=== PATIENT | male | born 1945 | race Hispanic/Latino ===

== ENCOUNTER 2018-08-10 16:20 | Inpatient (IN) | payer MEDICARE ==
[~2018-08-10] VITALS: Ht 167.6 cm; Wt 105.7 kg
[2018-08-10] MEDS ORDERED: DEXTROSE 50% SYRINGE 50 ML IV ONE (16:45)
--- NOTE | 2018-08-10 17:36 | Diagnostic Imaging Report ---
Examination: Single AP view of the chest. COMPARISON: Sweating, hypertension INDICATION: None DISCUSSION: Portable AP chest radiograph with motion artifacts and rotation. Lines/tubes: None Lungs: Low lung volumes and vascular crowding. There is no evidence of pneumonia or pulmonary edema. Pleura: There is no pleural effusion or pneumothorax. Heart and mediastinum: Cardiomediastinal silhouette is unremarkable. Pulmonary vasculature is normal. Bones and soft tissues: No acute bony abnormalities. Degenerative changes in the thoracic spine. IMPRESSION: Suboptimal exam as described. Low lung volumes with vascular crowding. Signed by: Jhony Orellana MD on 08/10/2018 5:33 PM
[2018-08-10] MEDS: DEXTROSE 10% 1,000 ML IV SCH (17:40)
[2018-08-10] MEDS ORDERED: ONDANSETRON HCL INJ 2MG/ML 2ML 2 MG/ML VIAL IV PRN (19:00)
[2018-08-10] MEDS ORDERED: DEXTROSE 50% SYRINGE 50 ML IV PRN (19:00)
[2018-08-10 19:09] LABS: BASOPHILS % 0.1 % (0.0-1.0); EOSINOPHILS % 0.1 % (0.0-6.0); HEMATOCRIT 35.8 % (38.2-49.6); HEMOGLOBIN 12.4 g/dL (14.0-18.0); LYMPHOCYTES % 9.9 % (18.0-39.1); MEAN CORPUSCULAR HEMOGLOBIN 30.3 pg (28-32); MEAN CORPUSCULAR HGB CONC 34.6 g/dL (31-35); MEAN CORPUSCULAR VOLUME 87.5 fL (81-99); MONOCYTES # (AUTO) 0.3 (0.2-0.8); MONOCYTES % 3.4 % (4.4-11.3); NEUTROPHILS # (AUTO) 8.5 (2.1-6.9); NEUTROPHILS % 86.1 % (38.7-80.0); PLATELET COUNT 241 x10e3/uL (140-360); RED BLOOD COUNT 4.09 x10e6/uL (4.3-5.7); RED CELL DISTRIBUTION WIDTH 13.2 % (11.7-14.4)
[2018-08-10 19:21] LABS: INR 0.83; PARTIAL THROMBOPLASTIN TIME 27.8 seconds (23.8-35.5); PROTHROMBIN TIME 11.9 seconds (11.9-14.5)
[2018-08-10 19:31] LABS: ALBUMIN 3.4 g/dL (3.5-5.0); ALBUMIN/GLOBULIN RATIO 0.9 (0.8-2.0); ANION GAP 17.1 mmol/L (8-16); CALCIUM 9.4 mg/dL (8.4-10.2); CREATININE, SERUM 3.11 mg/dL (0.72-1.25); MAGNESIUM 2.2 MG/DL (1.3-2.1)
[2018-08-10 19:32] LABS: POTASSIUM 5.1 mmol/L (3.5-5.1)
[2018-08-10 19:37] LABS: CREATINE KINASE MB 1.4 ng/mL (0-5.0)
[2018-08-10] MEDS: OCTREOTIDE ACETATE 0.05 MG/ML AMP INJ SCH (19:50)
[2018-08-10] MEDS ORDERED: HYDRALAZINE HCL 20 MG/ML VIAL IV NR (20:00)
[2018-08-10] MEDS ORDERED: LOVASTATIN40 MG PO (20:08)
[2018-08-10] MEDS ORDERED: METFORMIN HCL850 MG PO (20:08)
[2018-08-10] MEDS ORDERED: ASPIRIN EC81 MG PO (20:08)
[2018-08-10] MEDS ORDERED: ACTOS15 MG PO (20:08)
[2018-08-10] MEDS ORDERED: GLIMEPIRIDE2 MG PO (20:08)
[2018-08-10] MEDS ORDERED: CLONIDINE HCL0.2 MG PO (20:08)
[2018-08-10] MEDS ORDERED: LOSARTAN POTAS100 MG PO (20:08)
--- OUTSIDE RECORDS SUMMARY | 2018-08-10 21:01 | XMS REPORT ---
Author Author [facility] Address Unknown Phone Unavailable Care Team Providers Care Healthcare Management Name Role Phone Patsy PANTOJA Unavailable Unavailable Problems This patient has no known problems. Allergies, Adverse Reactions, Alerts This patient has no known allergies or adverse reactions. Medications This patient has no known medications. Results Test Description Test Time Test Comments Text Results Atomic Results Result Comments CHEST SINGLE (PORTABLE) 2018-08-10 17:30:00 [place] [id number] Patient Name: LISBET CLEMONS MR #: [id number] : 1945 Age/Sex: 72/M Req #: [id number] Adm Physician: Ordered by: JENNY PANTOJA MD Report #: [id number] Location: ER Room/Bed: Procedure: [id number] DX/CHEST SINGLE (PORTABLE) Exam Date: 08/10/18 Exam Time: 1715 REPORT STATUS: Signed Examination: Single AP view of the chest. COMP ARISON: Sweating, hypertension INDICATION: None DISCUSSION: Portable AP chest radiograph with motion artifacts and rotation. Lines/tubes: None Lungs: Low lung volumes and vascular crowding. There is no evidence of pneumonia or pulmonary edema. Pleura: There is no pleural effusion or pneumothorax. Heart and mediastinum: Cardiomediastinal silhouette is unremarkable. Pulmonary vasculature is normal. Bones and soft tissues: No acute bony abnormalities. Degenerative changes in the thoracic spine. IMPRESSION: Suboptimal exam as described. Low lung volumes with vascular crowding. Signed by: Rajat Orellana MD on 08/10/2018 5:33 PM Dictated By: RAJAT ORELLANA MD 173 Transcribed By: GAURAV on 08/10/181732 COPY TO: JENNY PANTOJA MD
[2018-08-11 00:50] LABS: BILIRUBIN,URINE NEGATIVE (NEGATIVE); CLARITY,URINE CLEAR (CLEAR); COLOR,URINE YELLOW (YELLOW); KETONES,URINE NEGATIVE (NEGATIVE); LEUKOCYTE ESTERASE ,URINE NEGATIVE (NEGATIVE); NITRITE,URINE NEGATIVE (NEGATIVE); PROTEIN,URINE DIPSTICK 2+ (NEGATIVE); URINE UROBILINOGEN 0.2 mg/dL (0.2 - 1)
[2018-08-11 00:55] LABS: BACTERIA,URINE MODERATE /HPF; EPITHELIAL CELLS,URINE RARE /LPF; HYALINE CASTS 0-1 (0-1); RBC,URINE 0-5 /HPF (0-5); WBC,URINE (MAN) 0-5 /HPF (0-5)
[2018-08-11] MEDS: OCTREOTIDE ACETATE 0.05 MG/ML AMP INJ SCH ×4 (02:59→21:00)
[2018-08-11 03:28] LABS: CREATINE KINASE MB 1.2 ng/mL (0-5.0)
[2018-08-11] MEDS: DEXTROSE 10% 1,000 ML IV SCH (06:15)
[2018-08-11 06:28] LABS: BASOPHILS % 0.3 % (0.0-1.0); EOSINOPHILS # (AUTO) 0.1 (0.0-0.4); EOSINOPHILS % 0.8 % (0.0-6.0); HEMATOCRIT 33.5 % (38.2-49.6); HEMOGLOBIN 11.9 g/dL (14.0-18.0); LYMPHOCYTES # (AUTO) 1.6 (1.0-3.2); MEAN CORPUSCULAR HEMOGLOBIN 30.8 pg (28-32); MEAN CORPUSCULAR HGB CONC 35.5 g/dL (31-35); MEAN CORPUSCULAR VOLUME 86.8 fL (81-99); MONOCYTES # (AUTO) 0.6 (0.2-0.8); MONOCYTES % 9.6 % (4.4-11.3); NEUTROPHILS % 64.1 % (38.7-80.0); PLATELET COUNT 229 x10e3/uL (140-360); RED BLOOD COUNT 3.86 x10e6/uL (4.3-5.7); RED CELL DISTRIBUTION WIDTH 13.3 % (11.7-14.4)
[2018-08-11 07:06] LABS: CREATINE KINASE MB 1.1 ng/mL (0-5.0)
[2018-08-11 07:20] LABS: ANION GAP 11.4 mmol/L (8-16); CALCIUM 8.4 mg/dL (8.4-10.2); CREATININE, SERUM 2.89 mg/dL (0.72-1.25); POTASSIUM 4.4 mmol/L (3.5-5.1)
[2018-08-11] MEDS ORDERED: SODIUM CHLORIDE 0.9% 1000ML 1,000 ML IV SCH (11:45)
[2018-08-11] MEDS ORDERED: DEXTROSE 50% SYRINGE 50 ML IV PRN (11:45)
[2018-08-11] MEDS ORDERED: PIOGLITAZONE HCL 45 MG TAB PO SCH (12:00)
[2018-08-11] MEDS: CEFTRIAXONE SOD 1 GM/NS 50 ML 50 ML IV SCH (12:05)
[2018-08-11] MEDS: LOSARTAN POTASSIUM 100 MG TAB PO SCH (12:15)
[2018-08-11] MEDS: ASPIRIN 81 MG ENTERIC COATED PO SCH (12:15)
[2018-08-11 12:17] LABS: CHOL/HDL RATIO 2.6 (3.9-4.7)
[2018-08-11 13:46] VITALS: BP 177/80
[2018-08-11 14:05] VITALS: BP 177/80
[2018-08-11] MEDS: INSULIN REGULAR, HUMAN 100 UNIT/1 ML 3ML VIAL SQ SCH ×2 (16:30→21:00)
--- NOTE | 2018-08-11 16:41 | Diagnostic Imaging Report ---
EXAM: Renal Ultrasound INDICATION: Abnormal labs. COMPARISON: None TECHNIQUE: Transverse and longitudinal images of the kidneys and bladder were obtained. FINDINGS: Right Kidney: Length: 11.9 cm, the renal cortex measures 1.6 cm Appearance: Normal echogenicity. Collecting system: No hydronephrosis Stones: None Cyst/Mass: No evidence of solid mass. There is a simple appearing anechoic cyst within the right mid pole kidney, measuring up to 1.6 x 1.2 x 1.7 cm. Left Kidney: Length: 11.0 cm, the renal cortex measures 2.0 cm Appearance: Normal echogenicity. Collecting system: No hydronephrosis Stones: None Cyst/Mass: None Bladder: Unremarkable in appearance. Bilateral ureteral jets are seen. The prevoid volume is 413 cc. No postvoid volume. Prostate: Not visualized. IMPRESSION: No evidence of hydronephrosis or stone. Simple appearing right mid pole renal cyst, measuring up to 1.7 cm. Signed by: Dr. Antionette Collins MD on 08/11/2018 4:38 PM
[2018-08-11 17:00] VITALS: BP 190/76
[2018-08-11] MEDS: CLONIDINE HCL 0.2 MG TAB PO SCH (17:31)
[2018-08-11] MEDS: HYDRALAZINE HCL 20 MG/ML VIAL IV PRN (17:33)
[2018-08-11 18:46] LABS: ANION GAP 12.1 mmol/L (8-16); CALCIUM 8.6 mg/dL (8.4-10.2); CREATININE, SERUM 2.91 mg/dL (0.72-1.25)
[2018-08-11 18:48] LABS: POTASSIUM 5.1 mmol/L (3.5-5.1)
[2018-08-11 20:00] VITALS: BP 178/81
[2018-08-11] MEDS: SIMVASTATIN 40 MG TAB PO SCH (21:03)
[2018-08-11] MEDS: HYDRALAZINE HCL 25 MG TAB PO SCH (22:00)
[2018-08-11] MEDS: SODIUM CHLORIDE 0.9% 1000ML 1,000 ML IV SCH (22:09)
[2018-08-12] VITALS (8 sets, daily range): BP systolic 131–195; BP diastolic 62–82
[2018-08-12] MEDS: SODIUM CHLORIDE 0.9% 1000ML 1,000 ML IV SCH ×2 (03:10→09:45)
[2018-08-12] MEDS: HYDRALAZINE HCL 25 MG TAB PO SCH ×3 (05:50→22:17)
[2018-08-12 06:51] LABS: HEMATOCRIT 33.8 % (38.2-49.6); HEMOGLOBIN 11.1 g/dL (14.0-18.0); MEAN CORPUSCULAR HEMOGLOBIN 29.5 pg (28-32); MEAN CORPUSCULAR HGB CONC 32.8 g/dL (31-35); MEAN CORPUSCULAR VOLUME 89.9 fL (81-99); PLATELET COUNT 211 x10e3/uL (140-360); RED BLOOD COUNT 3.76 x10e6/uL (4.3-5.7); RED CELL DISTRIBUTION WIDTH 13.2 % (11.7-14.4)
[2018-08-12 07:42] LABS: ANION GAP 12.9 mmol/L (8-16); CALCIUM 8.1 mg/dL (8.4-10.2); CREATININE, SERUM 2.66 mg/dL (0.72-1.25); POTASSIUM 4.9 mmol/L (3.5-5.1)
[2018-08-12] MEDS ORDERED: SODIUM CHLORIDE 0.9% 1000ML 1,000 ML IV ONE (08:00)
[2018-08-12] MEDS ORDERED: SIMVASTATIN 20 MG TAB PO SCH (09:00)
[2018-08-12] MEDS ORDERED: PIOGLITAZONE HCL 15 MG TAB PO SCH (09:00)
[2018-08-12] MEDS: INSULIN REGULAR, HUMAN 100 UNIT/1 ML 3ML VIAL SQ SCH ×4 (09:43→21:03)
[2018-08-12] MEDS: LOSARTAN POTASSIUM 100 MG TAB PO SCH (09:44)
[2018-08-12] MEDS: CLONIDINE HCL 0.2 MG TAB PO SCH ×2 (09:44→17:09)
[2018-08-12] MEDS: ASPIRIN 81 MG ENTERIC COATED PO SCH (09:44)
[2018-08-12] MEDS: CEFTRIAXONE SOD 1 GM/NS 50 ML 50 ML IV SCH (09:45)
[2018-08-12] MEDS: HYDRALAZINE HCL 20 MG/ML VIAL IV PRN ×2 (12:03→21:00)
[2018-08-12 14:20] LABS: EOSINOPHILS % (MANUAL) 1 % (0-7); LYMPHOCYTES % (MANUAL) 32 % (19-48); MONOCYTES % (MANUAL) 5 % (3.4-9.0); MYELOCYTES % (MANUAL) 1 % (0-0); NEUTROPHILS % (MANUAL) 56 % (40-74); PLATELET ESTIMATE ADEQUATE; PLATELET MORPHOLOGY COMMENT NORMAL; RBC MORPHOLOGY COMMENT NORMAL
[2018-08-12] MEDS ORDERED: ONDANSETRON HCL 4 MG ORAL DISINTEGRATING TAB PO PRN (20:15)
[2018-08-12] MEDS: SIMVASTATIN 40 MG TAB PO SCH (21:03)
[2018-08-12] MEDS ORDERED: OCTREOTIDE ACETATE 0.05 MG/ML AMP INJ SCH (21:30)
[2018-08-13] VITALS (9 sets, daily range): BP systolic 152–208; BP diastolic 64–85
[2018-08-13] MEDS: HYDRALAZINE HCL 20 MG/ML VIAL IV PRN ×2 (03:06→20:43)
[2018-08-13] MEDS: SODIUM CHLORIDE 0.9% 1000ML 1,000 ML IV SCH (03:10)
[2018-08-13] MEDS: HYDRALAZINE HCL 25 MG TAB PO SCH ×3 (06:35→22:18)
[2018-08-13 07:36] LABS: ANION GAP 13.6 mmol/L (8-16); CALCIUM 8.1 mg/dL (8.4-10.2); CREATININE, SERUM 2.38 mg/dL (0.72-1.25); POTASSIUM 4.6 mmol/L (3.5-5.1)
[2018-08-13] MEDS: ASPIRIN 81 MG ENTERIC COATED PO SCH (08:01)
[2018-08-13] MEDS: CEFTRIAXONE SOD 1 GM/NS 50 ML 50 ML IV SCH (11:17)
[2018-08-13] MEDS: CLONIDINE HCL 0.2 MG TAB PO SCH ×2 (12:21→22:18)
[2018-08-13] MEDS: SIMVASTATIN 40 MG TAB PO SCH (20:43)
[2018-08-13] MEDS ORDERED: INSULIN LISPRO 100 UNIT/1 ML 3ML VIAL SQ ONE ×2 (21:00→22:30)
[2018-08-14] VITALS (8 sets, daily range): BP systolic 128–170; BP diastolic 62–81
[2018-08-14] MEDS: HYDRALAZINE HCL 25 MG TAB PO SCH (06:12)
[2018-08-14] MEDS: SODIUM CHLORIDE 0.9% 1000ML 1,000 ML IV SCH ×2 (06:12→17:52)
[2018-08-14] MEDS: CLONIDINE HCL 0.2 MG TAB PO SCH ×3 (06:12→22:14)
[2018-08-14] MEDS ORDERED: HYDRALAZINE HCL 25 MG TAB PO NR (07:30)
[2018-08-14 07:57] LABS: ANION GAP 10.1 mmol/L (8-16); CREATININE, SERUM 2.13 mg/dL (0.72-1.25); POTASSIUM 4.1 mmol/L (3.5-5.1)
[2018-08-14] MEDS: ASPIRIN 81 MG ENTERIC COATED PO SCH (08:18)
[2018-08-14] MEDS ORDERED: DEXTROSE 50% SYRINGE 50 ML IV PRN (11:30)
[2018-08-14] MEDS: INSULIN LISPRO 100 UNIT/1 ML 3ML VIAL SQ SCH ×3 (11:30→20:33)
[2018-08-14] MEDS: CEFTRIAXONE SOD 1 GM/NS 50 ML 50 ML IV SCH (11:31)
[2018-08-14] MEDS ORDERED: LANTUS 3ML100 UNITS/ SQ (11:40)
[2018-08-14] MEDS ORDERED: HYDRALAZINE HCL 25 MG TAB PO SCH (14:00)
[2018-08-14] MEDS: HYDRALAZINE HCL 100 MG TABLET PO SCH ×2 (14:45→22:14)
[2018-08-14] MEDS: HYDRALAZINE HCL 20 MG/ML VIAL IV PRN (16:52)
[2018-08-14] MEDS: SIMVASTATIN 40 MG TAB PO SCH (20:33)
[2018-08-15] VITALS (8 sets, daily range): BP systolic 125–190; BP diastolic 60–83
[2018-08-15] MEDS: SODIUM CHLORIDE 0.9% 1000ML 1,000 ML IV SCH ×3 (01:59→12:04)
[2018-08-15] MEDS: HYDRALAZINE HCL 100 MG TABLET PO SCH ×3 (05:24→22:00)
[2018-08-15] MEDS: CLONIDINE HCL 0.2 MG TAB PO SCH ×3 (05:24→22:00)
[2018-08-15] MEDS: INSULIN LISPRO 100 UNIT/1 ML 3ML VIAL SQ SCH ×4 (07:30→21:00)
[2018-08-15] MEDS: ASPIRIN 81 MG ENTERIC COATED PO SCH (08:26)
[2018-08-15] MEDS: CEFTRIAXONE SOD 1 GM/NS 50 ML 50 ML IV SCH (12:03)
[2018-08-15] MEDS: HYDRALAZINE HCL 20 MG/ML VIAL IV PRN (12:03)
[2018-08-15] MEDS: SIMVASTATIN 40 MG TAB PO SCH (21:00)
[2018-08-16] VITALS (9 sets, daily range): BP systolic 153–184; BP diastolic 68–92
[2018-08-16] MEDS: SODIUM CHLORIDE 0.9% 1000ML 1,000 ML IV SCH ×4 (05:02→22:49)
[2018-08-16] MEDS: HYDRALAZINE HCL 100 MG TABLET PO SCH ×3 (05:02→22:28)
[2018-08-16] MEDS: CLONIDINE HCL 0.2 MG TAB PO SCH ×3 (05:02→22:28)
[2018-08-16 06:25] LABS: BASOPHILS % 0.4 % (0.0-1.0); EOSINOPHILS # (AUTO) 0.1 (0.0-0.4); EOSINOPHILS % 1.6 % (0.0-6.0); HEMOGLOBIN 9.3 g/dL (14.0-18.0); LYMPHOCYTES # (AUTO) 1.2 (1.0-3.2); LYMPHOCYTES % 24.7 % (18.0-39.1); MEAN CORPUSCULAR HEMOGLOBIN 30.4 pg (28-32); MEAN CORPUSCULAR HGB CONC 34.4 g/dL (31-35); MEAN CORPUSCULAR VOLUME 88.2 fL (81-99); MONOCYTES # (AUTO) 0.4 (0.2-0.8); MONOCYTES % 8.4 % (4.4-11.3); NEUTROPHILS # (AUTO) 3.2 (2.1-6.9); NEUTROPHILS % 64.7 % (38.7-80.0); PLATELET COUNT 175 x10e3/uL (140-360); RED BLOOD COUNT 3.06 x10e6/uL (4.3-5.7); RED CELL DISTRIBUTION WIDTH 12.9 % (11.7-14.4)
[2018-08-16 06:46] LABS: ANION GAP 9.2 mmol/L (8-16); CREATININE, SERUM 1.64 mg/dL (0.72-1.25); POTASSIUM 4.2 mmol/L (3.5-5.1)
[2018-08-16] MEDS: INSULIN LISPRO 100 UNIT/1 ML 3ML VIAL SQ SCH ×4 (07:30→21:03)
[2018-08-16] MEDS: ASPIRIN 81 MG ENTERIC COATED PO SCH (08:36)
[2018-08-16] MEDS: CEFTRIAXONE SOD 1 GM/NS 50 ML 50 ML IV SCH (11:20)
[2018-08-16] MEDS: HYDRALAZINE HCL 20 MG/ML VIAL IV PRN ×2 (12:15→18:52)
[2018-08-16] MEDS ORDERED: SODIUM BICARBO650 MG PO (15:05)
[2018-08-16] MEDS ORDERED: HYDRALAZINE HC100 MG PO (15:05)
[2018-08-16] MEDS: SIMVASTATIN 40 MG TAB PO SCH (20:46)
[2018-08-16] MEDS: ISOSORBIDE DINITRATE 20 MG TAB PO SCH (22:28)
[2018-08-17] VITALS: BP 144/66
[2018-08-17 04:00] VITALS: BP 145/64
[2018-08-17] MEDS: SODIUM CHLORIDE 0.9% 1000ML 1,000 ML IV SCH (06:29)
[2018-08-17] MEDS: CLONIDINE HCL 0.2 MG TAB PO SCH (06:30)
[2018-08-17] MEDS: HYDRALAZINE HCL 100 MG TABLET PO SCH (06:30)
[2018-08-17 06:37] LABS: BASOPHILS % 0.4 % (0.0-1.0); EOSINOPHILS # (AUTO) 0.1 (0.0-0.4); EOSINOPHILS % 1.2 % (0.0-6.0); HEMOGLOBIN 9.2 g/dL (14.0-18.0); LYMPHOCYTES # (AUTO) 1.5 (1.0-3.2); LYMPHOCYTES % 29.7 % (18.0-39.1); MEAN CORPUSCULAR HEMOGLOBIN 30.1 pg (28-32); MEAN CORPUSCULAR HGB CONC 34.1 g/dL (31-35); MEAN CORPUSCULAR VOLUME 88.2 fL (81-99); MONOCYTES # (AUTO) 0.4 (0.2-0.8); MONOCYTES % 8.2 % (4.4-11.3); NEUTROPHILS # (AUTO) 3.1 (2.1-6.9); NEUTROPHILS % 60.1 % (38.7-80.0); PLATELET COUNT 190 x10e3/uL (140-360); RED BLOOD COUNT 3.06 x10e6/uL (4.3-5.7); RED CELL DISTRIBUTION WIDTH 13.1 % (11.7-14.4)
[2018-08-17 06:47] LABS: ANION GAP 10.1 mmol/L (8-16); CREATININE, SERUM 1.54 mg/dL (0.72-1.25); POTASSIUM 4.1 mmol/L (3.5-5.1)
[2018-08-17 07:30] VITALS: BP 162/80
[2018-08-17 08:00] VITALS: BP 162/80
[2018-08-17] MEDS: ASPIRIN 81 MG ENTERIC COATED PO SCH (08:22)
[2018-08-17] MEDS: ISOSORBIDE DINITRATE 20 MG TAB PO SCH (08:23)
[2018-08-17] MEDS: INSULIN LISPRO 100 UNIT/1 ML 3ML VIAL SQ SCH (08:24)
== END 2018-08-17 11:08 | disposition home or self-care (01) | DRG 638 ==
LOC: ER 16:20 → ERHOLD 20:58 → MED/SURG3 08-11 12:20 → OBSVTOIN 08-12 15:20
PROVIDERS: ADMIT Internal Medicine; ATTEND Internal Medicine
DX: E11.649 Type 2 diabetes mellitus with hypoglycemia without coma (principal); Z68.41 Body mass index [BMI] 40.0-44.9, adult; N17.9 Acute kidney failure, unspecified; I12.9 Hypertensive chronic kidney disease with stage 1 through stage 4 chronic kidney disease, or unspecified chronic kidney disease; E11.22 Type 2 diabetes mellitus with diabetic chronic kidney disease; N18.3 Chronic kidney disease, stage 3 (moderate); Z79.4 Long term (current) use of insulin; E86.0 Dehydration; E66.01 Morbid (severe) obesity due to excess calories; Z79.84 Long term (current) use of oral hypoglycemic drugs; D64.9 Anemia, unspecified
CPT/HCPCS: 36415; 71045; 76770; 80048; 80053; 80061; 81001; 82550; 82553; 82948; 83036; 83605; 83735; 84484; 85007; 85025; 85027; 85610; 85730; 87040; 87086; 93005; 96360; 96361; 96372; 99284; G0378; J0360; J0696; J2354; J7030; J7799

== ENCOUNTER 2021-08-22 23:13 | Inpatient (IN) | payer MEDICARE ==
[~2021-08-22] VITALS: Ht 167.6 cm; Wt 105.7 kg
[~2021-08-22 23:13] MED LIST: ACTOS15 MG PO; ASPIRIN EC81 MG PO; CLONIDINE HCL0.2 MG PO; GLIMEPIRIDE2 MG PO; HYDRALAZINE HC100 MG PO; LANTUS 3ML100 UNITS/ SQ; LOSARTAN POTAS100 MG PO; LOVASTATIN40 MG PO; METFORMIN HCL850 MG PO; SODIUM BICARBO650 MG PO
[2021-08-22] MEDS ORDERED: INSULIN REGULAR, HUMAN 100 UNIT/1 ML IV STA (23:27)
[2021-08-22] MEDS ORDERED: SODIUM CHLORIDE 0.9% 1000ML 1,000 ML IV STA (23:27)
[2021-08-22 23:39] LABS: HEMATOCRIT 31.5 % (38.2-49.6); LYMPHOCYTES # (AUTO) 0.8 (1.0-3.2); LYMPHOCYTES % 11.5 % (18.0-39.1); MEAN CORPUSCULAR HEMOGLOBIN 30.5 pg (28-32); MEAN CORPUSCULAR HGB CONC 34.9 g/dL (31-35); MEAN CORPUSCULAR VOLUME 87.3 fL (81-99); MONOCYTES # (AUTO) 0.1 (0.2-0.8); NEUTROPHILS # (AUTO) 5.7 (2.1-6.9); NEUTROPHILS % 86.2 % (38.7-80.0); PLATELET COUNT 216 x10e3/uL (140-360); RED BLOOD COUNT 3.61 x10e6/uL (4.3-5.7); RED CELL DISTRIBUTION WIDTH 12.4 % (11.7-14.4)
[2021-08-22 23:57] LABS: ABG HCO3 21 mmol/L (22-26); ABG PCO2 37 mmHg (35-45); ABG PH 7.36 (7.35-7.45); ABG PO2 79 mmHg (80-105)
[2021-08-22 23:58] LABS: ABG TCO2 22
[2021-08-22 23:59] LABS: ALBUMIN 2.8 g/dL (3.5-5.0); ALBUMIN/GLOBULIN RATIO 0.9 (0.8-2.0); ANION GAP 16.1 mmol/L (8-16); CALCIUM 7.1 mg/dL (8.4-10.2); CREATININE, SERUM 2.47 mg/dL (0.72-1.25); POTASSIUM 5.1 mmol/L (3.5-5.1)
[2021-08-23] LABS: CREATINE KINASE MB 1.5 ng/mL (0-5.0)
[2021-08-23] MEDS ORDERED: INSULIN REGULAR, HUMAN 100 UNIT/1 ML IV STA ×2 (00:07→02:16)
[2021-08-23] MEDS: SODIUM CHLORIDE 0.9% 1000ML 1,000 ML IV SCH ×3 (01:00→17:00)
[2021-08-23 02:06] LABS: ALBUMIN 2.9 g/dL (3.5-5.0); ANION GAP 12.9 mmol/L (8-16); CALCIUM 7.4 mg/dL (8.4-10.2); CREATININE, SERUM 2.13 mg/dL (0.72-1.25); POTASSIUM 3.9 mmol/L (3.5-5.1)
[2021-08-23 02:27] LABS: CREATINE KINASE MB 1.4 ng/mL (0-5.0)
[2021-08-23] MEDS ORDERED: DEXTROSE 50% SYRINGE 50 ML IV PRN (02:30)
[2021-08-23 02:46] LABS: CLARITY,URINE CLEAR (CLEAR); COLOR,URINE YELLOW (YELLOW); KETONES,URINE NEGATIVE (NEGATIVE); LEUKOCYTE ESTERASE ,URINE NEGATIVE (NEGATIVE); NITRITE,URINE NEGATIVE (NEGATIVE); PROTEIN,URINE DIPSTICK 2+ (NEGATIVE); URINE UROBILINOGEN 0.2 mg/dL (0.2 - 1)
[2021-08-23 02:51] LABS: BACTERIA,URINE FEW /HPF; EPITHELIAL CELLS,URINE RARE /LPF; RBC,URINE 0-5 /HPF (0-5); WBC,URINE (MAN) 0-5 /HPF (0-5)
[2021-08-23 06:14] VITALS: BP 117/61
[2021-08-23] MEDS ORDERED: DOCUSATE SODIUM 100 MG CAP PO PRN (06:45)
[2021-08-23] MEDS ORDERED: ONDANSETRON HCL INJ 2MG/ML 2ML 2 MG/ML VIAL IV PRN (06:45)
[2021-08-23] MEDS ORDERED: ACETAMINOPHEN 325 MG TAB PO PRN (06:45)
[2021-08-23 07:23] VITALS: BP 120/53
[2021-08-23] MEDS: INSULIN REGULAR, HUMAN 100 UNIT/1 ML SQ SCH ×4 (07:30→21:00)
[2021-08-23 08:04] LABS: CHOL/HDL RATIO 5.1 (3.9-4.7)
[2021-08-23] MEDS: INSULIN GLARGINE 100 UNITS/ML VIAL SQ SCH ×2 (08:05→17:42)
[2021-08-23] MEDS: ASPIRIN 81 MG ENTERIC COATED PO SCH (08:05)
[2021-08-23] MEDS: SODIUM BICARBONATE 650 MG TAB PO SCH ×2 (08:05→19:30)
[2021-08-23] MEDS ORDERED: INSULIN REGULAR, HUMAN 100 UNIT/1 ML SQ ONE ×2 (08:05→12:00)
[2021-08-23 08:23] VITALS: BP 120/53
[2021-08-23 08:24] LABS: CREATINE KINASE MB 1.6 ng/mL (0-5.0)
[2021-08-23] MEDS: HEPARIN SOD (PORCINE) 5,000 UNIT/ML VIAL SC SCH ×2 (09:00→21:00)
[2021-08-23 11:18] VITALS: BP 117/58
[2021-08-23 12:46] LABS: ANION GAP 15.1 mmol/L (8-16); CALCIUM 7.6 mg/dL (8.4-10.2); CREATININE, SERUM 1.66 mg/dL (0.72-1.25); POTASSIUM 4.1 mmol/L (3.5-5.1)
[2021-08-23] MEDS: HYDRALAZINE HCL 100 MG TABLET PO SCH ×2 (12:57→21:37)
[2021-08-23 15:17] VITALS: BP 100/52
[2021-08-23 17:55] LABS: CREATINE KINASE MB 0.6 ng/mL (0-5.0)
[2021-08-23] MEDS: ATORVASTATIN 40 MG TAB PO SCH (21:00)
[2021-08-23] MEDS ORDERED: ATORVASTATIN 40 MG TAB PO SCH (21:00)
[2021-08-24] MEDS: SODIUM CHLORIDE 0.9% 1000ML 1,000 ML IV SCH ×3 (01:00→17:11)
[2021-08-24] MEDS: HYDRALAZINE HCL 100 MG TABLET PO SCH ×3 (05:13→20:58)
[2021-08-24 05:30] LABS: BASOPHILS % 0.4 % (0.0-1.0); EOSINOPHILS # (AUTO) 0.1 (0.0-0.4); EOSINOPHILS % 1.2 % (0.0-6.0); HEMATOCRIT 34.8 % (38.2-49.6); HEMOGLOBIN 11.8 g/dL (14.0-18.0); LYMPHOCYTES # (AUTO) 2.7 (1.0-3.2); LYMPHOCYTES % 33.1 % (18.0-39.1); MEAN CORPUSCULAR HEMOGLOBIN 29.5 pg (28-32); MEAN CORPUSCULAR HGB CONC 33.9 g/dL (31-35); MONOCYTES # (AUTO) 0.4 (0.2-0.8); MONOCYTES % 4.9 % (4.4-11.3); PLATELET COUNT 225 x10e3/uL (140-360); RED CELL DISTRIBUTION WIDTH 12.7 % (11.7-14.4)
[2021-08-24 05:42] VITALS: BP 148/88
[2021-08-24 05:42] LABS: ALBUMIN 2.6 g/dL (3.5-5.0); ALBUMIN/GLOBULIN RATIO 0.9 (0.8-2.0); ANION GAP 10.3 mmol/L (8-16); CALCIUM 7.3 mg/dL (8.4-10.2); CREATININE, SERUM 1.41 mg/dL (0.72-1.25); POTASSIUM 3.3 mmol/L (3.5-5.1)
[2021-08-24] MEDS ORDERED: INSULIN LISPRO 100 UNIT/1 ML 3ML VIAL SQ SCH (07:30)
[2021-08-24] MEDS ORDERED: ONDANSETRON HCL 4 MG ORAL DISINTEGRATING TAB PO PRN (08:00)
[2021-08-24 08:23] VITALS: BP 145/64
[2021-08-24] MEDS: ASPIRIN 81 MG ENTERIC COATED PO SCH (08:41)
[2021-08-24] MEDS: SODIUM BICARBONATE 650 MG TAB PO SCH ×2 (08:42→20:52)
[2021-08-24] MEDS: HEPARIN SOD (PORCINE) 5,000 UNIT/ML VIAL SC SCH ×2 (10:00→21:06)
[2021-08-24 11:52] VITALS: BP 115/62
[2021-08-24] MEDS: INSULIN LISPRO 100 UNIT/1 ML 3ML VIAL SQ SCH ×5 (12:30→21:05)
[2021-08-24 14:57] LABS: FREE T4 (FREE THYROXINE) 0.76 ng/dL (0.8-1.8); THYROID STIMULATING HORMONE 5.079 uIU/mL (0.350-4.940)
[2021-08-24 15:24] VITALS: BP 157/60
[2021-08-24] MEDS ORDERED: INSULIN GLARGINE 100 UNITS/ML VIAL SQ SCH (16:30)
[2021-08-24] MEDS: INSULIN GLARGINE 100 UNITS/ML VIAL SQ SCH (17:02)
[2021-08-24] MEDS ORDERED: POTASSIUM CHLORIDE 20 MEQ TAB CR PO ONE (17:30)
[2021-08-24 20:00] VITALS: BP 163/71
[2021-08-24] MEDS: ATORVASTATIN 40 MG TAB PO SCH (20:52)
[2021-08-24 21:00] VITALS: BP 163/71
[2021-08-25] VITALS: BP 151/69
[2021-08-25] MEDS: SODIUM CHLORIDE 0.9% 1000ML 1,000 ML IV SCH ×2 (01:15→08:49)
[2021-08-25 04:00] VITALS: BP 141/62
[2021-08-25] MEDS: HYDRALAZINE HCL 100 MG TABLET PO SCH ×2 (05:43→13:26)
[2021-08-25] MEDS: INSULIN LISPRO 100 UNIT/1 ML 3ML VIAL SQ SCH ×6 (07:30→17:30)
[2021-08-25 08:01] VITALS: BP 152/68
[2021-08-25 08:12] VITALS: BP 152/68
[2021-08-25] MEDS: SODIUM BICARBONATE 650 MG TAB PO SCH (08:49)
[2021-08-25] MEDS: ASPIRIN 81 MG ENTERIC COATED PO SCH (08:49)
[2021-08-25] MEDS: INSULIN GLARGINE 100 UNITS/ML VIAL SQ SCH ×2 (09:00→17:30)
[2021-08-25] MEDS: HEPARIN SOD (PORCINE) 5,000 UNIT/ML VIAL SC SCH (09:00)
[2021-08-25 11:13] VITALS: BP 154/65
[2021-08-25 15:32] LABS: ANION GAP 10.8 mmol/L (8-16); CALCIUM 7.3 mg/dL (8.4-10.2); CREATININE, SERUM 0.96 mg/dL (0.72-1.25); POTASSIUM 3.8 mmol/L (3.5-5.1)
[2021-08-25 15:38] VITALS: BP 154/67
[2021-08-25] MEDS ORDERED: Insulin Lispro SQ (17:17)
[2021-08-25] MEDS ORDERED: Insulin Glargine SQ (17:17)
[2021-08-25] MEDS ORDERED: Atorvastatin PO (17:17)
== END 2021-08-25 18:14 | disposition home or self-care (01) | DRG 638 ==
LOC: ER 23:16 → ERHOLD 08-23 00:57 → MED/SURG 08-23 03:11
PROVIDERS: ADMIT Internal Medicine; ATTEND Internal Medicine
DX: E11.65 Type 2 diabetes mellitus with hyperglycemia (principal); N17.9 Acute kidney failure, unspecified; E11.22 Type 2 diabetes mellitus with diabetic chronic kidney disease; E11.42 Type 2 diabetes mellitus with diabetic polyneuropathy; I25.10 Atherosclerotic heart disease of native coronary artery without angina pectoris; E78.5 Hyperlipidemia, unspecified; E66.9 Obesity, unspecified; Z68.37 Body mass index [BMI] 37.0-37.9, adult; I12.9 Hypertensive chronic kidney disease with stage 1 through stage 4 chronic kidney disease, or unspecified chronic kidney disease; N18.30 Chronic kidney disease, stage 3 unspecified; R00.1 Bradycardia, unspecified; Z79.84 Long term (current) use of oral hypoglycemic drugs; Z82.49 Family history of ischemic heart disease and other diseases of the circulatory system
CPT/HCPCS: 36415; 36600; 70450; 71045; 80048; 80053; 80061; 81001; 82550; 82553; 82805; 82948; 83036; 84439; 84443; 84484; 85025; 93005; 93306; 96361; 97139; 99284; J1644; J1815; J1817; J7030; U0002

== ENCOUNTER 2021-08-30 16:50 | Emergency (ER) | payer MEDICARE ==
[~2021-08-30] VITALS: Ht 167.6 cm; Wt 105.7 kg
[~2021-08-30 16:50] MED LIST changes: +Atorvastatin PO; +Insulin Glargine SQ; +Insulin Lispro SQ
[2021-08-30] MEDS ORDERED: SODIUM CHLORIDE 0.9% 1000ML 1,000 ML IV STA (17:01)
[2021-08-30] MEDS ORDERED: SODIUM CHLORIDE 0.9% 1000ML 1,000 ML ONE (17:16)
[2021-08-30 17:19] LABS: BASOPHILS % 0.2 % (0.0-1.0); EOSINOPHILS # (AUTO) 0.1 (0.0-0.4); EOSINOPHILS % 1.4 % (0.0-6.0); HEMATOCRIT 28.8 % (38.2-49.6); HEMOGLOBIN 9.4 g/dL (14.0-18.0); LYMPHOCYTES # (AUTO) 1.3 (1.0-3.2); MEAN CORPUSCULAR HEMOGLOBIN 30.2 pg (28-32); MEAN CORPUSCULAR HGB CONC 32.6 g/dL (31-35); MEAN CORPUSCULAR VOLUME 92.6 fL (81-99); MONOCYTES # (AUTO) 0.5 (0.2-0.8); MONOCYTES % 8.1 % (4.4-11.3); NEUTROPHILS # (AUTO) 3.7 (2.1-6.9); NEUTROPHILS % 66.1 % (38.7-80.0); PLATELET COUNT 197 x10e3/uL (140-360); RED BLOOD COUNT 3.11 x10e6/uL (4.3-5.7); RED CELL DISTRIBUTION WIDTH 13.2 % (11.7-14.4)
[2021-08-30 17:28] LABS: INR 0.91; PROTHROMBIN TIME 13.1 seconds (11.9-14.5)
[2021-08-30 17:29] LABS: PARTIAL THROMBOPLASTIN TIME 29.8 seconds (23.8-35.5)
[2021-08-30 17:37] LABS: ALBUMIN 2.4 g/dL (3.5-5.0); ANION GAP 10.7 mmol/L (8-16); CREATININE, SERUM 1.91 mg/dL (0.72-1.25); POTASSIUM 4.7 mmol/L (3.5-5.1)
[2021-08-30 17:44] LABS: CREATINE KINASE MB 1.8 ng/mL (0-5.0)
[2021-08-30] MEDS ORDERED: ASPIRIN 81 MG CHEW TAB PO ONE (18:30)
[2021-08-30] MEDS ORDERED: ASPIRIN 81 MG CHEW TAB ONE (18:50)
[2021-08-30 21:55] LABS: CREATINE KINASE MB 3.8 ng/mL (0-5.0)
== END 2021-08-30 21:30 | disposition other institution (70) ==
LOC: ER 17:00
DX: I95.2 Hypotension due to drugs (principal); R77.8 Other specified abnormalities of plasma proteins; I10 Essential (primary) hypertension; E11.9 Type 2 diabetes mellitus without complications; E78.5 Hyperlipidemia, unspecified; Z20.822 Contact with and (suspected) exposure to COVID-19; R94.31 Abnormal electrocardiogram [ECG] [EKG]
CPT/HCPCS: 36415; 71045; 80053; 82140; 82550; 82553; 82948; 83605; 83880; 84484; 85025; 85610; 85730; 87040; 93005; 99284; J7030; U0002